=== PATIENT | female | born 1990 | race Caucasian/White ===

== ENCOUNTER 2016-10-19 13:06 | Emergency (ER) | payer OTHER ==
[~2016-10-19] VITALS: Ht 170.2 cm; Wt 92.0 kg
[~2016-10-19 13:06] MED LIST: HYDR1TAB12 PO; IBUP200T48
[2016-10-19 13:22] VITALS: BP 130/81
== END 2016-10-19 17:09 | disposition home or self-care (01) ==
LOC: ED 16:18
DX: O20.0 Threatened abortion (principal); O03.88 Urinary tract infection following complete or unspecified spontaneous abortion; Z3A.13 13 weeks gestation of pregnancy
CPT/HCPCS: 36415; 76801; 81001; 84702; 86901; 87086; 99285

== ENCOUNTER 2017-02-03 15:34 | Inpatient (IN) | payer OTHER ==
[~2017-02-03] VITALS: Ht 167.6 cm; Wt 101.8 kg
[2017-02-03] MEDS ORDERED: TERBUTALINE 1 MG/ML, 1ML SQ ONE (16:00)
[2017-02-03] MEDS ORDERED: LACTATED RINGERS 1,000 ML IVBOLUS ONE (16:00)
[2017-02-03] MEDS ORDERED: TERBUTALINE 1 MG/ML, 1ML ONE (16:05)
[2017-02-03] MEDS ORDERED: KETOROLAC 30 MG/1 ML ONE (17:53)
[2017-02-03] MEDS ORDERED: ACETAMINOPHEN 325 MG TABLET PO PRN (18:00)
[2017-02-03] MEDS ORDERED: KETOROLAC 30 MG/1 ML IV ONE (18:00)
[2017-02-03] MEDS ORDERED: BETAMETHASONE 6 MG/ML, 5ML IM ONE (18:11)
[2017-02-03] MEDS: AMPICILLIN 1 GM in SODIUM CHLORIDE 0.9% 50 ML IV SCH (18:13)
[2017-02-03] MEDS: BETAMETHASONE 6 MG/ML, 5ML IM SCH (18:14)
[2017-02-03 19:45] VITALS: BP 117/69
[2017-02-03] MEDS: ZOLPIDEM 5MG TABLET PO SCH (21:00)
[2017-02-03] MEDS ORDERED: INDOMETHACIN 50 MG CAPSULE ONE (21:48)
[2017-02-03] MEDS: INDOMETHACIN 50 MG CAPSULE PO SCH (22:08)
[2017-02-04] MEDS ORDERED: ACETAMINOPHEN 325 MG TABLET ONE (00:05)
[2017-02-04] MEDS: AMPICILLIN 1 GM in SODIUM CHLORIDE 0.9% 50 ML IV SCH ×4 (00:07→18:03)
[2017-02-04] MEDS ORDERED: INDOMETHACIN 50 MG CAPSULE ONE ×4 (04:23→21:59)
[2017-02-04 04:26] VITALS: BP 116/66
[2017-02-04] MEDS: INDOMETHACIN 50 MG CAPSULE PO SCH ×4 (04:26→22:01)
[2017-02-04 07:17] VITALS: BP 112/60
[2017-02-04] MEDS: BETAMETHASONE 6 MG/ML, 5ML IM SCH (18:03)
[2017-02-04] MEDS ORDERED: CALCIUM CARBONATE 500 MG TAB.CHEW ONE (18:10)
[2017-02-04] MEDS ORDERED: CALCIUM CARBONATE 500 MG TAB.CHEW PO PRN (18:30)
[2017-02-04 21:27] VITALS: BP 113/62
[2017-02-05] MEDS: AMPICILLIN 1 GM in SODIUM CHLORIDE 0.9% 50 ML IV SCH ×5 (00:06→23:23)
[2017-02-05] MEDS ORDERED: ZOLPIDEM 5MG TABLET ONE ×2 (00:09→20:49)
[2017-02-05] MEDS: ZOLPIDEM 5MG TABLET PO SCH (00:10)
[2017-02-05] MEDS ORDERED: INDOMETHACIN 50 MG CAPSULE ONE ×3 (01:56→15:52)
[2017-02-05] MEDS: INDOMETHACIN 50 MG CAPSULE PO SCH ×2 (04:01→10:00)
[2017-02-05 04:04] VITALS: BP 115/57
[2017-02-05 09:23] VITALS: BP 126/63
[2017-02-05] MEDS ORDERED: LACTATED RINGERS 1,000 ML IV SCH (12:00)
[2017-02-05] MEDS ORDERED: ACETAMINOPHEN 325 MG TABLET PO PRN (15:30)
[2017-02-05] MEDS ORDERED: INDOMETHACIN 50 MG CAPSULE PO SCH (15:30)
[2017-02-05] MEDS ORDERED: CALCIUM CARBONATE 500 MG TAB.CHEW PO PRN (15:30)
[2017-02-05] MEDS ORDERED: ZOLPIDEM 5MG TABLET PO SCH (21:00)
[2017-02-05 22:32] VITALS: BP 120/62
[2017-02-06] MEDS: AMPICILLIN 1 GM in SODIUM CHLORIDE 0.9% 50 ML IV SCH (06:16)
[2017-02-06 06:19] VITALS: BP 99/56
[2017-02-06 10:15] VITALS: BP 110/62
== END 2017-02-06 11:31 | disposition home or self-care (01) | DRG 778 ==
LOC: LDOP 15:34 → LDIP 17:35
PROVIDERS: ADMIT Obstetrics & Gynecology Female Pelvic Medicine and Reconstructive Surgery; ATTEND Obstetrics & Gynecology Female Pelvic Medicine and Reconstructive Surgery
DX: O60.03 Preterm labor without delivery, third trimester (principal); O99.353 Diseases of the nervous system complicating pregnancy, third trimester; G43.909 Migraine, unspecified, not intractable, without status migrainosus; Z3A.28 28 weeks gestation of pregnancy; Z90.49 Acquired absence of other specified parts of digestive tract
CPT/HCPCS: 81001; 87086; J0290; J0702; J1885; J3105; J7120

== ENCOUNTER 2017-11-18 10:46 | Emergency (ER) | payer OTHER ==
[~2017-11-18] VITALS: Ht 170.2 cm; Wt 99.0 kg
[~2017-11-18 10:46] MED LIST changes: +IBU; +IBUP-1222 PO; -IBUP200T48; +IBUP200T49; +OXYC-302 PO; +ibup PO
[2017-11-18 10:48] VITALS: BP 116/82
[2017-11-18] MEDS ORDERED: ONDANSETRON ODT 4 MG ONE (11:18)
[2017-11-18] MEDS ORDERED: MECLIZINE CHEWABLE 25 MG TAB ONE (11:18)
[2017-11-18] MEDS ORDERED: ONDANSETRON ODT 4 MG PO ONE (11:30)
[2017-11-18] MEDS ORDERED: MECLIZINE CHEWABLE 25 MG TAB PO ONE (11:30)
== END 2017-11-18 11:41 | disposition home or self-care (01) ==
LOC: ED 11:35
DX: H81.399 Other peripheral vertigo, unspecified ear (principal); H81.10 Benign paroxysmal vertigo, unspecified ear; R11.2 Nausea with vomiting, unspecified
CPT/HCPCS: 99283; Q0162